=== PATIENT | male | born 1980 | race Caucasian/White ===

== ENCOUNTER 2016-07-01 05:25 | Emergency (ER) | payer OTHER ==
[~2016-07-01] VITALS: Ht 182.9 cm; Wt 159.0 kg
[2016-07-01 05:27] VITALS: BP 168/103; PULSE 92; RESP 16; O2SAT 100
--- NOTE | 2016-07-01 06:14 | ED.REPORT ---
HPI-Chest Pain Under 40 Date of Service July 01, 2016 ED Provider: José Miguel Ignacio MD A healthy 35 year old male presents to the ED reporting waxing and waning chest pain onset one week ago, worsening last night. The pain is described as "pressure." Associated symptoms include throat tightness, palpitations, shortness of breath, and insomnia. The patient denies vomiting, nausea, fever, chills, cough, leg pain, leg swelling, hemoptysis, abdominal pain, sour taste in his mouth, or other symptoms. He also denies recent travel or recent surgeries. The patient initially denies stress but then reports being "out of work for a while" and worrying about money. He has never had similar symptoms in the past. Nursing Notes Stated Complaint: CHEST PAIN Chief Complaint: Chest Pain Nursing Notes Reviewed: Yes Allergies: Coded Allergies: vancomycin (Verified Allergy, Unknown, 07/01/16) Scheduled Omeprazole (Omeprazole) 40 Mg Capsule.dr 40 MG PO DAILY General Time Seen by MD: 06:09 Chief Complaint Chest pain Hx Obtained From: Patient Arrived By: Walk-in Sudden in Onset?: No Onset Occurred: 1 week ago Symptom Duration: Waxes and wanes Location: : Chest left: Chest right Quality: Painful, Pressure Severity: Current: Moderate Severity: Maximum: Moderate Pertinent Negative: Relieved by nothing Recent Healthcare: No recent doctor visit Similar Sx Previous: No Risk Factors PERC Rule PERC Result: PERC rule satisfied Past Medical History Past Medical History Obesity Past Surgical History None reported Smoking History Unknown if Ever Smoker Social History 07/01/2016: Recently quit chewing tobacco two months ago Alcohol Use: Denies alcohol use Drug Use: Denies drug use Ambulatory Status Independent Review of Systems Review of Systems Note: + Throat tightness - Sour taste in mouth Patient initially denies stress but then reports recent stressors Constitutional: Denies: Chills, Fever Respiratory: Reports: Shortness of breath, Denies: Hemoptysis, Non-productive cough Cardiovascular: Reports: Chest pain, Palpitations GI: Denies: Abdominal pain, Diarrhea, Nausea, Vomiting Musculoskeletal: Denies: Extremity pain, Extremity swelling Psychiatric: Reports: Insomnia Complete sys rev & neg: except as marked. Physical Exam Initial Vital Signs Vital Signs (First) Date Time Temp Pulse Resp B/P Pulse Ox O2 Delivery O2 Flow Rate FiO2 07/01/16 05:27 36.4 92 16 168/103 100 Room Air Initial VS: Reviewed Head / Eyes: Atraumatic, Normocephalic Neck: Supple, Full range of motion Skin: Warm, Dry, No cyanosis Neurologic: Alert, Oriented, Nonfocal Psychiatric: Mood/affect normal, Behavior normal, Normal thought content General/Constitutional: Awake, Alert Respiratory / Chest: Breath sounds NL, Breath sounds = bilat, No respiratory distress Cardiovascular: Heart rate NL, Regular rhythm, Heart sounds NL, No murmurs ENT: Airway patent, Mucous membranes moist, Pharynx NL Interpretation & Diagnostics ECG Interpretation ECG Interpretation: Sinus rhythm rate [address] or T-wave changes Time: 05:38 Interpreted by: ED physician X-Ray Chest Interpretation Chest Xray Interpretation: Increased markings right lower lobe likely atelectasis View: Portable, 1 view Interpretation / Wet Read by: Wet read ED physician Re-Eval/Medical Decision Med Decision/Clinical Course 35-year-old male presenting with midsternal chest pain since last night. Also reports as if his throat is swollen. History of gastritis. He does feel stressed. He is declining labs. His chest x-ray is clear. His symptoms resolved GI cocktail. Likely gastritis. Cannot rule out anxiety. We will treat with omeprazole. Recommend follow-up with primary doctor. Precautions given. Re-Evaluation/Progress #1: Time of Eval: 07:00 Patient Status: Condition improved Re-Evaluation/Progress Note: Patient declines lab work due to fear of needles. Discussed with patient x-ray and ECG results, diagnosis, and plan for discharge. Follow-up and return to the ER instructions given. Patient agrees with plan for care and all questions were addressed. Re-Evaluation/Progress #2: Time of Eval: 07:31 Patient Status: Condition improved Re-Evaluation/Progress Note: Patient's chest pain has resolved after GI cocktail. Counseled Regarding: Diagnosis, Need for follow-up, When/why to return to ED Discharge & Departure Primary Impression: Non-cardiac chest pain Additional Impression: Gastritis Gastritis type: unspecified gastritis Chronicity: acute Gastritis bleeding : without bleeding Qualified Code: K29.00 - Acute gastritis without bleeding Disposition: Home Discharge Condition All VS Reviewed: Yes Condition: Improved Patient Instructions: Chest Pain (ED), Gastritis (GEN) Additional Instructions: Thank you for entrusting us with your care. Your x-ray and EKG were reassuring for any serious illness. You have declined lab work today. Take Omeprazole as prescribed. Call the referred clinic today for a follow-up appointment next week. Return to the ER with any new or worsening symptoms. Referrals: Aneesh Perla MD (Family) [facility] Scribe Attestation Portions of this note were transcribed by Jacquelyn Hdz. I, Dr. Ignacio, personally performed the history, physical exam, and medical decision-making; I reviewed and confirmed the accuracy of the information in the transcribed note. Signed by: Stacie Weathers, 07/01/2016, 07:35 copies to: Aneesh Perla MD; [facility] José Miguel Ignacio MD July 01, 2016 06:14 JACQUELYN HDZ July 01, 2016 06:25
[2016-07-01] MEDS ORDERED: LidocaineVisc 2%:Antacid 1:1 10 mL Syringe PO ONE (06:35)
[2016-07-01] MEDS ORDERED: OMEP40CA36 PO (06:54)
[2016-07-01 07:36] VITALS: BP 141/80; PULSE 88; RESP 21; O2SAT 97
[2016-07-01 07:39] VITALS: BP 141/80; PULSE 88; RESP 21; O2SAT 97
--- NOTE | 2016-07-01 08:06 | DRSVH ---
PROCEDURE: X-RAY CHEST ONE VIEW, PORTABLE ([id number]) INDICATIONS: chest pain TECHNIQUE: One view of the chest was acquired. COMPARISON: None. FINDINGS: Surgical changes and devices: None. Lungs and pleura: No pleural effusions or pneumothorax. Lungs are clear. Mediastinum: Mediastinal contours appear normal. Heart size is normal. Bones and chest wall: No suspicious bony lesions. Overlying soft tissues appear unremarkable. IMPRESSION: Normal chest Dictated by: Sid Siegel M.D. on 07/01/2016 at 8:04 Approved by: Sid Siegel M.D. on 07/01/2016 at 8:05
== END 2016-07-01 07:41 | disposition home or self-care (01) ==
LOC: SED 05:25
DX: R07.89 Other chest pain (principal); K29.00 Acute gastritis without bleeding; R00.2 Palpitations; R06.02 Shortness of breath; G47.00 Insomnia, unspecified; Z88.1 Allergy status to other antibiotic agents